=== PATIENT | female | born 1955 | race Two or more races ===

== ENCOUNTER 2017-09-03 12:04 | Emergency (ER) | payer MEDICAID, OTHER ==
[2017-09-03] MEDS ORDERED: IBUPROFEN 400 MG TABLET PO ONE (12:30)
[2017-09-03] MEDS ORDERED: IBUPROFEN 400 MG TABLET ONE (12:35)
[2017-09-03] MEDS ORDERED: ACETAMINOPHEN ES 500 MG TABLET ONE (13:05)
[2017-09-03] MEDS ORDERED: ACETAMINOPHEN ES 500 MG TABLET PO ONE (13:30)
[2017-09-03] MEDS ORDERED: HYDROCODONE/APAP 5/325MG 1 EACH TABLET PO ONE (13:30)
[2017-09-03] MEDS ORDERED: HYDROCODONE/APAP 5/325MG 1 EACH TABLET ONE (13:34)
== END 2017-09-03 14:39 | disposition home or self-care (01) ==
DX: M54.42 Lumbago with sciatica, left side (principal); M79.662 Pain in left lower leg; I10 Essential (primary) hypertension

== ENCOUNTER 2018-01-17 04:02 | Emergency (ER) | payer MEDICAID ==
[~2018-01-17] VITALS: Ht 165.1 cm; Wt 93.9 kg
--- NOTE | 2018-01-17 04:06 | NUR ---
PT TO ER BED 4. 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 VSS/RESP EVEN UNLABORED/NAD NOTED/SKIN WARM AND DRY/AFEBRILE/DENIES N-V-D/AOX4. AWAITNG MD FIGUEROA.
--- NOTE | 2018-01-17 04:15 | NUR ---
AT BEDSIDE FOR EVAL.
[2018-01-17] MEDS ORDERED: IV NS 0.9% 1,000 ML BAG IV ONE (04:30)
[2018-01-17] MEDS ORDERED: MECLIZINE HCL 12.5 MG TABLET PO ONE (04:30)
[2018-01-17 04:36] LABS: BASOPHILS # (AUTO) 0.1 /CMM (0.0-0.2); BASOPHILS % (AUTO) 0.8 % (0.0-2.0); EOSINOPHILS % (AUTO) 3.4 % (0.0-6.0); HEMATOCRIT 39 % (33-45); HEMOGLOBIN 13.5 g/dL (11.5-14.8); LYMPHOCYTES # (AUTO) 1.9 /CMM (0.8-4.8); LYMPHOCYTES % (AUTO) 30.3 % (20.0-44.0); MEAN CORPUSCULAR HEMOGLOBIN 31 PG (26.0-33.0); MEAN CORPUSCULAR HGB CONC 34 g/dl (31.0-36.0); MEAN CORPUSCULAR VOLUME 90 fL (82-100); MONOCYTES # (AUTO) 0.3 /CMM (0.1-1.30); MONOCYTES % (AUTO) 5.5 % (2.0-12.0); NEUTROPHILS # (AUTO) 3.8 /CMM (1.8-8.9); PLATELET COUNT (AUTO) 249 /CMM (150-450); RDW COEFFICIENT OF VARIATION 12.1 (11.5-15.0); RED BLOOD CELL COUNT(AUTO) 4.36 MIL/uL (4.0-5.2); WHITE BLOOD COUNT (AUTO) 6.3 K/uL (4.3-11.0)
--- NOTE | 2018-01-17 04:38 | NUR ---
20G IV TO L AC X 1 ATTEMPT USING ASEPTIC TECH, BLOOD HANDED OVER TO THE LAB AT BEDSIDE. IV FLUSHES EASILY WITH NS, NO S/S INFILTRATION NOTED AT THIS TIME.
--- NOTE | 2018-01-17 04:42 | NUR ---
URINE SPECIMEN OBTAINED AND SENT TO THE LAB.
[2018-01-17] MEDS ORDERED: MECLIZINE HCL 25 MG TABLET ONE (04:44)
--- NOTE | 2018-01-17 04:46 | NUR ---
XRAY AT BEDSIDE.
[2018-01-17 04:49] LABS: CALCIUM, SERUM 8.9 mg/dL (8.5-10.1); CARBON DIOXIDE 25 mmol/L (21-32); CHLORIDE 106 mmol/L (98-107); CREATININE 0.8 mg/dL (0.6-1.3); GLUCOSE 120 mg/dL (74-106); POTASSIUM 3.4 mmol/L (3.5-5.1); SODIUM SERUM 141 mmol/L (136-145); UREA NITROGEN, BLOOD 13 mg/dL (7-18)
[2018-01-17 04:58] LABS: TROPONIN I < 0.017 ng/mL (0.00-0.056)
[2018-01-17 05:00] LABS: APPEARANCE,URINE CLEAR (CLEAR); BILIRUBIN,URINE NEGATIVE (NEGATIVE); BLOOD, URINE TRACE Ery/uL (NEGATIVE); COLOR,URINE YELLOW (YELLOW); KETONES,URINE NEGATIVE (NEGATIVE); LEUKOCYTE ESTERASE ,URINE NEGATIVE (NEGATIVE); NITRITE, URINE NEGATIVE (NEGATIVE); PROTEIN,URINE NEGATIVE (NEGATIVE); UGLUCOSE NEGATIVE (NEGATIVE); UROBILINOGEN,URINE 0.2 EU/dL (0.2)
[2018-01-17 05:15] LABS: RBC,URINE 0-2 /HPF (0-2); WBC,URINE 0-2 /HPF (0-3)
[2018-01-17 05:16] LABS: BACTERIA,URINE None seen /HPF (None Seen); SQUAMOUS EPITHELIAL CELL,UR Few /HPF (None Seen)
--- NOTE | 2018-01-17 05:25 | NUR ---
PT AMBULATED DOWN HALLWAY WITH STEADY GAIT, DENIES ANY DIZZINESS.
[2018-01-17] MEDS ORDERED: LISINOPRIL (20MG) 20 MG TABLET ONE (05:39)
--- NOTE | 2018-01-17 05:45 | NUR ---
LISINOPRILNOT IN ER OMNICCELL. RECEIVED MED FROM [facility] [employer].
--- NOTE | 2018-01-17 06:06 | NUR ---
IV removed. Catheter intact and site benign. Pressure and 4x4 applied to site. No bleeding noted. Patient discharged to home in stable condition. Written and verbal after care instructions given. Patient verbalizes understanding of instruction. Patient is awake and alert to self, day, and place. Patient ambulatory with a steady gait.
[2018-01-17 06:08] VITALS: BP 157/92
[2018-01-17] MEDS ORDERED: LISINOPRIL (20MG) 20 MG TABLET PO SCH (09:00)
== END 2018-01-17 06:08 | disposition home or self-care (01) ==
LOC: ER 04:03
DX: R42 Dizziness and giddiness (principal); R07.89 Other chest pain; I10 Essential (primary) hypertension; E03.9 Hypothyroidism, unspecified; R94.31 Abnormal electrocardiogram [ECG] [EKG]; E78.00 Pure hypercholesterolemia, unspecified; Z95.5 Presence of coronary angioplasty implant and graft; Z95.1 Presence of aortocoronary bypass graft
CPT/HCPCS: 36415; 71045; 80048; 81001; 84484; 85025; 93005; 96360; 99285; A4606; J7030; J8597; Z7610; 81000-TC